=== PATIENT | female | born 1940 | race Hispanic/Latino ===

== ENCOUNTER 2020-01-10 06:38 | Day surgery (SDC) | payer OTHER ==
[2020-01-04 11:24] LABS: APPEARANCE,URINE Clear (CLEAR); BILIRUBIN,URINE Negative (NEGATIVE); COLOR,URINE Dark Yellow (YELLOW); GLUCOSE, URINE (UA) Negative (NEGATIVE); KETONES,URINE Negative (NEGATIVE); LEUKOCYTE ESTERASE ,URINE Negative (NEGATIVE); NITRATE,URINE Negative (NEGATIVE); OCCULT BLOOD,URINE Negative (NEGATIVE); PROTEIN,URINE Negative (NEGATIVE)
[2020-01-04 11:26] LABS: BASOPHILS % (AUTO) 1.3 % (0.0-5.0); EOSINOPHILS % (AUTO) 1.4 % (0.0-8.0); HEMATOCRIT 40.7 % (36-48); LYMPHOCYTES % (AUTO) 16.3 % (21.0-51.0); MEAN CORPUSCULAR HEMOGLOBIN 33.7 pg (27.0-33.0); MEAN CORPUSCULAR HGB CONC 33.2 g/dL (32.0-36.0); MEAN CORPUSCULAR VOLUME 101.5 fL (79-99); MONOCYTES % (AUTO) 7.4 % (3.0-13.0); NEUTROPHILS % (AUTO) 72.8 % (40.0-77.0); PLATELET COUNT (AUTO) 199 K/uL (130-400); RED BLOOD CELL COUNT(AUTO) 4.01 MIL/uL (4.00-5.50); RED CELL DISTRIBUTION WIDTH 15.9 % (11.0-15.5); WHITE BLOOD COUNT (AUTO) 11.8 K/uL (4.8-10.8)
[2020-01-04 11:35] LABS: CREATININE 0.9 mg/dL (0.5-1.5); POTASSIUM 4.1 mmol/L (3.5-5.1)
[2020-01-04 11:40] LABS: INR 0.92 (0.85-1.15); PARTIAL THROMBOPLASTIN TIME 25.9 SEC (26.3-35.5)
--- NOTE | 2020-01-09 15:05 | NUR ---
[facility] FAXED AND REPORTED ABNORMAL WBC TO DR MANDA SHEN ASST. SHE WILL INFORM DR. LI
[2020-01-10] VITALS (17 sets, daily range): BP systolic 133–160; BP diastolic 64–79
[~2020-01-10] VITALS: Ht 160 cm; Wt 85.7 kg
[2020-01-10] MEDS ORDERED: LACTATED RINGERS 1000ML 1,000 ML IV ONE (07:36)
[2020-01-10] MEDS: CEFTRIAXONE SODIUM 1 GM IVP PRN ×2 (07:51→08:45)
[2020-01-10] MEDS ORDERED: BOTULINUM TOXIN TYPE A 100 UNITS/VIAL INJ PRN (08:00)
[2020-01-10] MEDS ORDERED: ROCURONIUM 10MG/1ML SYR 10 MG/ML ML ONE (08:35)
[2020-01-10] MEDS ORDERED: SUCCINYLCHOLINE 200MG/10ML SYR ONE (08:35)
[2020-01-10] MEDS ORDERED: DEXAMETHASONE SOD PHOSPHATE 10MG/ML 1ML VIAL ONE (08:35)
[2020-01-10] MEDS ORDERED: LIDOCAINE PF 2% 5ML ABBOJECT ONE ×2 (08:35→08:36)
[2020-01-10] MEDS ORDERED: GLYCOPYRROLATE 1 MG/5 ML SYRINGE ONE (08:35)
[2020-01-10] MEDS ORDERED: PROPOFOL 10 MG/ML 20ML VIAL IV ONE (08:35)
[2020-01-10] MEDS ORDERED: NEOSTIGMINE 5MG/5ML SYR IV ONE (08:35)
[2020-01-10] MEDS ORDERED: FENTANYL CITRATE PF 50 MCG/1 ML 2ML VIAL ONE (08:35)
[2020-01-10] MEDS ORDERED: POTA10TA11 PO (08:48)
[2020-01-10] MEDS ORDERED: ASPI-556 PO (08:48)
[2020-01-10] MEDS ORDERED: CALC-1009 PO (08:48)
[2020-01-10] MEDS ORDERED: ACET-2247 PO (08:48)
[2020-01-10] MEDS ORDERED: MIRA25TA PO (08:48)
[2020-01-10] MEDS ORDERED: GLUC-29 PO (08:48)
[2020-01-10] MEDS ORDERED: VITA1TAB22 PO (08:48)
[2020-01-10] MEDS ORDERED: ETAN50CA SQ (08:48)
[2020-01-10] MEDS ORDERED: METH2.5T6 PO (08:48)
[2020-01-10] MEDS ORDERED: PRED5TAB PO (08:48)
[2020-01-10] MEDS ORDERED: NITR100C PO (08:48)
[2020-01-10] MEDS ORDERED: HYDR12.54 PO (08:48)
[2020-01-10] MEDS ORDERED: ATEN100T PO (08:48)
[2020-01-10] MEDS ORDERED: FOLI0.4T2 PO (08:48)
--- NOTE | 2020-01-10 10:30 | NUR ---
POST RECEIVED PT FROM PACU, S/P CYSTOSCOPY WITH BOTOX INJECTIONS, PT AWAKE AND ALERT , NO DISTRESS NOTED. PT DENIED ANY PAIN OR DISCOMFORTS. VS STABLE ON ARRIVAL. CALL LIGHT WITHIN REACH.
--- NOTE | 2020-01-10 11:00 | NUR ---
dc pt dc home via [facility] , no distress noted pt denied any pain or discomforts. pt accompanied by son.
== END 2020-01-10 11:00 | disposition home or self-care (01) ==
LOC: DAH 06:38
PROVIDERS: ATTEND Urology
DX: N39.41 Urge incontinence (principal); Z11.59 Encounter for screening for other viral diseases; I10 Essential (primary) hypertension; R35.1 Nocturia; E66.9 Obesity, unspecified; Z90.710 Acquired absence of both cervix and uterus; Z98.890 Other specified postprocedural states; Z68.33 Body mass index [BMI] 33.0-33.9, adult; Z79.82 Long term (current) use of aspirin; Z79.01 Long term (current) use of anticoagulants; Z79.899 Other long term (current) drug therapy; Z82.49 Family history of ischemic heart disease and other diseases of the circulatory system; Z83.3 Family history of diabetes mellitus
CPT/HCPCS: 36415; 52287; 71045; 80048; 81003; 85025; 85610; 85730; 87088; 93005; A4215 ×2; A4221; A4222; A4223; A4600; A4657; A4663; A6260; J0330; J0585; J0696; J1100; J2001; J2704; J3010; J3490; J7030; J7120 ×2; U0003; J2710